=== PATIENT | male | born 1950 | race African-American/Black ===

== ENCOUNTER 2019-12-17 11:45 | Inpatient (IN) | payer OTHER ==
[~2019-12-17] VITALS: Ht 172.7 cm; Wt 75.7 kg
[2019-12-17 12:58] LABS: BASOPHILS % 0.7 % (0.0-2.0); EOSINOPHILS % 13.3 % (0.0-5.0); HEMATOCRIT. 45.9 % (36.0-48.0); HEMOGLOBIN. 15.7 g/dL (12.0-16.0); LYMPHOCYTES % 24.4 % (20.0-50.0); MEAN CORPUSCULAR HEMOGLOBIN 33.4 pg (28.0-32.0); MEAN CORPUSCULAR VOLUME 97.8 fL (81.0-99.0); MEAN PLATELET VOLUME 7.9 fl (7.4-10.4); NEUTROPHILS % 52.6 % (40.0-76.0); PLATELET 183 x1000/uL (130-400); RED CELL DISTRIBUTION WIDTH 13.8 % (11.6-14.6)
[2019-12-17 13:04] LABS: CLARITY URINE CLEAR (CLEAR); COLOR URINE DK YELLOW (YELLOW); KETONES URINE 1+ (NEGATIVE); LEUKOCYTE ESTERASE URINE NEGATIVE (NEGATIVE); NITRITE URINE NEGATIVE (NEGATIVE); OCCULT BLOOD URINE NEGATIVE (NEGATIVE); PH URINE 5.5 (4.5-8.0); PROTEIN URINE TRACE (NEGATIVE); UROBILINOGEN URINE 0.2 E.U./dL (0.2-1.0)
[2019-12-17 13:09] LABS: CHLORIDE 108 mEq/L (98-107)
[2019-12-17 13:13] LABS: INR 1.1; PROTHROMBIN TIME 11.4 sec (9.6-11.0)
[2019-12-17] MEDS ORDERED: FUROSEMIDE 20MG/2ML VIAL IVP ONE (13:15)
[2019-12-17] MEDS ORDERED: CLONIDINE 0.1MG TABLET PO PRN (16:00)
[2019-12-17] MEDS ORDERED: HYDROCODONE/ACETAMINOPHEN 5/325MG TABLET PO PRN (16:00)
[2019-12-17] MEDS ORDERED: DOCUSATE SODIUM 100MG CAPSULE PO PRN (16:00)
[2019-12-17] MEDS ORDERED: MORPHINE SULFATE 2 MG/ML CPJ (NOT FOR IM USE) IV PRN (16:00)
[2019-12-17] MEDS ORDERED: IPRATROPIUM/ALBUTEROL 0.5-3(2.5)MG/3ML NEB NEB PRN (16:00)
[2019-12-17] MEDS ORDERED: DIPHENHYDRAMINE 50MG/ML VIAL IV PRN (16:00)
[2019-12-17] MEDS ORDERED: LORAZEPAM 0.5MG TABLET PO PRN (16:00)
[2019-12-17] MEDS ORDERED: GUAIFENESIN 200MG/10ML SUGAR FREE UDC PO PRN (16:00)
[2019-12-17] MEDS ORDERED: HYDRALAZINE 20MG/ML VIAL IV PRN (16:00)
[2019-12-17] MEDS ORDERED: MAGNESIUM/ALUMINUM HYDROXIDE/SIMETHICONE 30ML UDC PO PRN (16:00)
[2019-12-17] MEDS ORDERED: ACETAMINOPHEN 650MG SUPP PR PRN (16:00)
[2019-12-17] MEDS ORDERED: ACETAMINOPHEN 325MG TABLET PO PRN ×2 (16:00→17:00)
[2019-12-17] MEDS ORDERED: ONDANSETRON HCL 4MG/2ML INJ IV PRN (16:00)
[2019-12-17] MEDS ORDERED: NA PHOS,M-B/NA PHOS,DI-BA ENEMA 118ML PR PRN (16:00)
[2019-12-17 17:36] LABS: BG BASE EXCESS -6.5 mmol/L (-2.0-2.0); BG CARBOXYHEMOGLOBIN 0.9 % (0.5-1.5); BG DEOXYHEMOGLOBIN 4.5 % (0.0-5.0); BG FRACTION INSPIRED OXYGEN 21; BG HCO3 ACT 15.5 mmol/L (22.0-26.0); BG METHEMOGLOBIN 0.3 % (0.0-1.5); BG OXYGEN SATURATION 95.4 % (92.0-98.5); BG OXYHEMOGLOBIN 94.3 % (94.0-97.0); BG PCO2 23.6 mmHg (35.0-45.0); BG PH 7.434 (7.350-7.450); BG SAMPLE SITE RIGHT BRACHIAL; BG TOTAL HEMOGLOBIN 15.9 g/dL (12.0-18.0); BG VENT MODE ROOM AIR
[2019-12-17 17:44] LABS: INR 1.1
[2019-12-17 17:48] VITALS: BP 103/73
[2019-12-17 18:00] VITALS: BP 103/73
[2019-12-17] MEDS ORDERED: IOHEXOL-300 100 ML BOTTLE ONE (19:06)
[2019-12-17 20:00] VITALS: BP 113/76
[2019-12-17] MEDS ORDERED: BISACODYL 10MG SUPP PR PRN (21:00)
[2019-12-17] MEDS ORDERED: DOCUSATE SODIUM 100MG CAPSULE PO SCH (21:00)
[2019-12-17] MEDS ORDERED: FAMOTIDINE 20MG TABLET PO SCH (21:00)
[2019-12-17] MEDS ORDERED: CHLORHEXIDINE GLUCONATE 4% EXTERNAL USE TOP SCH (21:00)
[2019-12-17] MEDS ORDERED: ASCORBIC ACID 500 MG TABLET PO SCH (21:00)
[2019-12-17] MEDS: ALLOPURINOL 300 MG TABLET PO SCH (21:10)
[2019-12-17 22:13] VITALS: BP 113/76
[2019-12-17] MEDS ORDERED: FUROSEMIDE 40MG/4ML VIAL IVP SCH (22:30)
[2019-12-17 22:52] LABS: *AMPHETAMINES SCREEN URINE NEGATIVE (NEGATIVE); *BARBITURATES SCREEN URINE NEGATIVE (NEGATIVE); *BENZODIAZEPINES SCREEN URINE NEGATIVE (NEGATIVE); *COCAINE SCREEN URINE NEGATIVE (NEGATIVE); CANNABINOID URINE SCREEN NEGATIVE (NEGATIVE); METHADONE URINE SCREEN NEGATIVE (NEGATIVE); OPIATES URINE SCREEN NEGATIVE (NEGATIVE); PHENCYCLIDINE URINE SCREEN NEGATIVE (NEGATIVE)
[2019-12-17 23:55] LABS: CREATINE KINASE 212 IU/L (39-308)
[2019-12-17 23:56] LABS: CREATINE KINASE MB FRACTION 4.5 ng/mL (0.5-3.6)
[2019-12-18] VITALS (51 sets, daily range): BP systolic 46–199; BP diastolic 40–186
[2019-12-18] MEDS ORDERED: MAGNESIUM 2 G PREMIX 50 ML IV SCH
[2019-12-18] MEDS ORDERED: AMLO5TAB88 PO (00:49)
[2019-12-18] MEDS ORDERED: AZIL40TA PO (00:49)
[2019-12-18] MEDS ORDERED: HYDR10TA34 PO (00:49)
[2019-12-18] MEDS ORDERED: EPINEPHRINE 4 MG in DEXT 5% WATER 246 ML IV SCH (06:00)
[2019-12-18] MEDS ORDERED: NOREPINEPHRINE 4 MG in DEXT 5% WATER 246 ML IV SCH (06:00)
[2019-12-18] MEDS: ALLOPURINOL 300 MG TABLET PO SCH (06:19)
[2019-12-18 06:31] LABS: HEMATOCRIT. 43.3 % (42.0-52.0); HEMOGLOBIN. 14.8 g/dL (14.0-18.0); MEAN CORPUSCULAR HEMOGLOBIN 33.3 pg (28.0-32.0); MEAN CORPUSCULAR VOLUME 97.6 fL (80.0-94.0); MEAN PLATELET VOLUME 8.1 fl (7.4-10.4); PLATELET 180 x1000/uL (130-400); RED BLOOD CELL COUNT 4.44 mill/uL (4.7-6.1); RED CELL DISTRIBUTION WIDTH 13.6 % (11.6-14.6)
[2019-12-18 06:37] LABS: CHLORIDE 107 mEq/L (98-107)
[2019-12-18 06:45] LABS: HDL CHOLESTEROL 65 mg/dL (40-59); LDL CHOLESTEROL 119 mg/dL (5-100)
[2019-12-18 06:46] LABS: CREATINE KINASE 262 IU/L (39-308)
[2019-12-18 06:47] LABS: CREATINE KINASE MB FRACTION 4.7 ng/mL (0.5-3.6); T4 FREE 1.45 ng/dL (0.76-1.46)
[2019-12-18] MEDS ORDERED: SKIN ADHESIVE 0.7 GM EA TOP ONE ×3 (08:00→09:25)
[2019-12-18] MEDS ORDERED: SODIUM CHLORIDE 0.9% IRRIG SOL 1,000 ML IR ONE (08:01)
[2019-12-18] MEDS ORDERED: NORMAL SALINE 0.9% 10 ML SYR ONE (08:01)
[2019-12-18] MEDS ORDERED: SODIUM CHLORIDE 0.9% 1,000 ML ONE (08:01)
[2019-12-18] MEDS ORDERED: BUPIVACAINE HCL 0.5% (5MG/ML) 50ML ONE (08:01)
[2019-12-18] MEDS ORDERED: BACITRACIN 50,000 UNITS/VIAL ONE (08:01)
[2019-12-18] MEDS: CHLORHEXIDINE GLUCONATE 4% EXTERNAL USE TOP SCH ×2 (09:11→11:00)
[2019-12-18] MEDS ORDERED: SUCCINYLCHOLINE CHLORIDE 200MG/10ML IV ONE (09:49)
[2019-12-18] MEDS ORDERED: LIDOCAINE HCL/PF 2% 20MG/ML 5 ML/VIAL ONE (09:51)
[2019-12-18] MEDS ORDERED: ETOMIDATE 2MG/ML 10ML VIAL IV ONE (10:42)
[2019-12-18] MEDS ORDERED: KETOROLAC 30MG/ML VIAL ONE (10:42)
[2019-12-18] MEDS ORDERED: DEXAMETHASONE 4MG/ML 1ML VIAL ONE (10:42)
[2019-12-18] MEDS ORDERED: ONDANSETRON HCL 4MG/2ML INJ ONE (10:42)
[2019-12-18] MEDS ORDERED: METOCLOPRAMIDE HCL 10MG/2ML VIAL ONE (10:42)
[2019-12-18] MEDS ORDERED: LIDOCAINE HCL/PF 1% 10 MG/ML 5ML VIAL ONE (10:43)
[2019-12-18] MEDS ORDERED: EPHEDRINE SULFATE 50MG/ML VIAL ONE (10:43)
[2019-12-18] MEDS ORDERED: SODIUM CHLORIDE 0.9% 500 ML IV PRN (10:43)
[2019-12-18] MEDS ORDERED: MORPHINE SULFATE 2 MG/ML CPJ (NOT FOR IM USE) IV PRN (10:45)
[2019-12-18] MEDS ORDERED: MAGNESIUM SULFATE 3 GM in DEXT 5% WATER 100 ML IV PRN (10:45)
[2019-12-18] MEDS ORDERED: ALBUMIN HUMAN 12.5G/250ML (5%) IV PRN (10:45)
[2019-12-18] MEDS ORDERED: MAGNESIUM 1 G PREMIX 100 ML IV PRN (10:45)
[2019-12-18] MEDS ORDERED: CALCIUM CHLORIDE 3,000 MG in DEXT 5% WATER 250 ML IV PRN (10:45)
[2019-12-18] MEDS ORDERED: ACETAMINOPHEN 325MG TABLET PO PRN (10:45)
[2019-12-18] MEDS ORDERED: ALBUMIN HUMAN 25GM/100ML (25%) IV PRN (10:45)
[2019-12-18] MEDS ORDERED: MAGNESIUM 2 G PREMIX 50 ML IV PRN (10:45)
[2019-12-18] MEDS ORDERED: ONDANSETRON HCL 4MG/2ML INJ IV PRN (10:45)
[2019-12-18] MEDS ORDERED: FENTANYL CITRATE/PF 50MCG/ML 2ML VIAL ONE (10:50)
[2019-12-18] MEDS ORDERED: FUROSEMIDE 40MG/4ML VIAL IVP NR (11:15)
[2019-12-18 11:18] LABS: BG BASE EXCESS -8.9 mmol/L (-2.0-2.0); BG CARBOXYHEMOGLOBIN 0.3 % (0.5-1.5); BG HCO3 ACT 17.2 mmol/L (22.0-26.0); BG METHEMOGLOBIN 0.3 % (0.0-1.5); BG OXYHEMOGLOBIN 97.4 % (94.0-97.0); BG PCO2 38.1 mmHg (35.0-45.0); BG PH 7.273 (7.350-7.450); BG PO2 125.8 mmHg (75.0-100.0); BG SAMPLE SITE A-LINE; BG TOTAL HEMOGLOBIN 12.8 g/dL (12.0-18.0); BG VENT MODE MASK - SIMPLE
[2019-12-18] MEDS: FAMOTIDINE 20MG/2ML VIAL IV SCH (11:33)
[2019-12-18] MEDS: KETOROLAC 15MG/ML VIAL IV SCH ×3 (11:34→22:33)
[2019-12-18 12:06] LABS: BASOPHILS % 0.4 % (0.0-2.0); EOSINOPHILS % 3.8 % (0.0-5.0); HEMATOCRIT. 38.5 % (42.0-52.0); HEMOGLOBIN. 12.9 g/dL (14.0-18.0); LYMPHOCYTES % 11.6 % (20.0-50.0); MEAN CORPUSCULAR HEMOGLOBIN 32.6 pg (28.0-32.0); MEAN CORPUSCULAR VOLUME 97.6 fL (80.0-94.0); MEAN PLATELET VOLUME 7.8 fl (7.4-10.4); MONOCYTES % 6.3 % (2.0-8.0); NEUTROPHILS % 77.9 % (40.0-76.0); PLATELET 168 x1000/uL (130-400); RED BLOOD CELL COUNT 3.95 mill/uL (4.7-6.1); RED CELL DISTRIBUTION WIDTH 13.6 % (11.6-14.6)
[2019-12-18 12:10] LABS: CHLORIDE 109 mEq/L (98-107)
[2019-12-18 12:49] LABS: PLATELET ESTIMATE NORMAL
[2019-12-18] MEDS: DOCUSATE SODIUM 100MG CAPSULE PO SCH (16:07)
[2019-12-18] MEDS: BACITRACIN 15GM TUBE TOP SCH (16:07)
[2019-12-18 19:55] LABS: BASOPHILS % 0.1 % (0.0-2.0); HEMOGLOBIN. 13.9 g/dL (14.0-18.0); LYMPHOCYTES % 7.9 % (20.0-50.0); MEAN CORPUSCULAR VOLUME 97.4 fL (80.0-94.0); MEAN PLATELET VOLUME 7.9 fl (7.4-10.4); PLATELET 174 x1000/uL (130-400); RED CELL DISTRIBUTION WIDTH 13.3 % (11.6-14.6)
[2019-12-18 20:11] LABS: CHLORIDE 107 mEq/L (98-107)
[2019-12-18] MEDS: FUROSEMIDE 40MG TABLET PO SCH (22:31)
[2019-12-19] VITALS (30 sets, daily range): BP systolic 61–134; BP diastolic 43–71
[2019-12-19] MEDS ORDERED: CALCIUM CHLORIDE 3,000 MG in DEXT 5% WATER 250 ML IV PRN (02:00)
[2019-12-19] MEDS ORDERED: MAGNESIUM SULFATE 3 GM in DEXT 5% WATER 100 ML IV PRN (02:00)
[2019-12-19 06:41] LABS: BASOPHILS % 0.6 % (0.0-2.0); HEMATOCRIT. 38.8 % (42.0-52.0); LYMPHOCYTES % 13.5 % (20.0-50.0); MEAN CORPUSCULAR HEMOGLOBIN 32.5 pg (28.0-32.0); MEAN CORPUSCULAR VOLUME 97.3 fL (80.0-94.0); MEAN PLATELET VOLUME 8.1 fl (7.4-10.4); MONOCYTES % 7.7 % (2.0-8.0); NEUTROPHILS % 77.2 % (40.0-76.0); PLATELET 171 x1000/uL (130-400); RED BLOOD CELL COUNT 3.99 mill/uL (4.7-6.1); RED CELL DISTRIBUTION WIDTH 13.3 % (11.6-14.6)
[2019-12-19 06:50] LABS: CHLORIDE 107 mEq/L (98-107)
[2019-12-19] MEDS: DOCUSATE SODIUM 100MG CAPSULE PO SCH ×2 (08:25→17:07)
[2019-12-19] MEDS: BACITRACIN 15GM TUBE TOP SCH ×2 (08:26→17:00)
[2019-12-19] MEDS: FAMOTIDINE 20MG/2ML VIAL IV SCH (08:26)
[2019-12-19] MEDS: FUROSEMIDE 40MG TABLET PO SCH ×2 (08:26→21:00)
[2019-12-19] MEDS ORDERED: AMIODARONE HCL 150 MG in DEXT 5% WATER 100 ML IV NR ×2 (11:00→20:30)
[2019-12-19] MEDS ORDERED: AMIODARONE HCL 900 MG in DEXT 5% WATER 482 ML IV SCH (11:00)
[2019-12-19] MEDS ORDERED: MAGNESIUM 2 G PREMIX 50 ML IV NR (13:00)
[2019-12-19] MEDS: OXYCODONE HCL/ACETAMINOPHEN 5/325MG TABLET PO PRN (16:51)
[2019-12-19] MEDS ORDERED: IBUPROFEN 400MG TABLET PO PRN (17:30)
[2019-12-19] MEDS ORDERED: AMIODARONE HCL 150 MG in DEXT 5% WATER 100 ML IV SCH (18:00)
[2019-12-19] MEDS: AMIODARONE HCL 200 MG TABLET PO SCH (21:00)
[2019-12-20] VITALS (12 sets, daily range): BP systolic 79–134; BP diastolic 56–73
[2019-12-20] MEDS: OXYCODONE HCL/ACETAMINOPHEN 5/325MG TABLET PO PRN (00:21)
[2019-12-20] MEDS ORDERED: THROAT LOZENGES-BENZOCAINE/MENTH/CETYLPYRD CL LOZENGES MM PRN (02:30)
[2019-12-20 05:48] LABS: CHLORIDE 104 mEq/L (98-107)
[2019-12-20 06:41] LABS: HEMATOCRIT. 40.8 % (42.0-52.0); MEAN CORPUSCULAR HEMOGLOBIN 33.3 pg (28.0-32.0); MEAN CORPUSCULAR VOLUME 96.7 fL (80.0-94.0); MEAN PLATELET VOLUME 8.1 fl (7.4-10.4); PLATELET 167 x1000/uL (130-400); RED BLOOD CELL COUNT 4.22 mill/uL (4.7-6.1); RED CELL DISTRIBUTION WIDTH 13.4 % (11.6-14.6)
[2019-12-20] MEDS: AMIODARONE HCL 200 MG TABLET PO SCH ×2 (08:48→20:38)
[2019-12-20] MEDS: FAMOTIDINE 20MG/2ML VIAL IV SCH (08:48)
[2019-12-20] MEDS: FUROSEMIDE 40MG TABLET PO SCH ×2 (08:48→20:38)
[2019-12-20] MEDS: DOCUSATE SODIUM 100MG CAPSULE PO SCH ×2 (08:48→16:02)
[2019-12-20] MEDS: BACITRACIN 15GM TUBE TOP SCH ×2 (09:00→15:35)
[2019-12-20 11:54] LABS: PLATELET ESTIMATE NORMAL
[2019-12-20] MEDS ORDERED: MAGNESIUM 4 G PREMIX 100 ML IV ONE (12:30)
[2019-12-20] MEDS ORDERED: HYDR-4001 MT (16:43)
[2019-12-21] VITALS (9 sets, daily range): BP systolic 95–114; BP diastolic 49–74
[2019-12-21 05:07] LABS: ANTI-NUCLEAR ANTIBODIES DIRECT Negative (Negative)
[2019-12-21 06:42] LABS: HEMATOCRIT. 43.5 % (42.0-52.0); HEMOGLOBIN. 14.6 g/dL (14.0-18.0); MEAN CORPUSCULAR HEMOGLOBIN 32.9 pg (28.0-32.0); MEAN CORPUSCULAR VOLUME 98.1 fL (80.0-94.0); MEAN PLATELET VOLUME 7.8 fl (7.4-10.4); PLATELET 180 x1000/uL (130-400); RED BLOOD CELL COUNT 4.44 mill/uL (4.7-6.1); RED CELL DISTRIBUTION WIDTH 13.2 % (11.6-14.6)
[2019-12-21 06:53] LABS: CHLORIDE 102 mEq/L (98-107)
[2019-12-21] MEDS: FAMOTIDINE 20MG/2ML VIAL IV SCH (08:23)
[2019-12-21] MEDS: AMIODARONE HCL 200 MG TABLET PO SCH (08:23)
[2019-12-21] MEDS: DOCUSATE SODIUM 100MG CAPSULE PO SCH (08:23)
[2019-12-21] MEDS: FUROSEMIDE 40MG TABLET PO SCH (08:23)
[2019-12-21] MEDS ORDERED: MAGNESIUM 4 G PREMIX 100 ML IV SCH (09:00)
[2019-12-21] MEDS: BACITRACIN 15GM TUBE TOP SCH (09:00)
[2019-12-21 09:26] LABS: PLATELET ESTIMATE NORMAL
[2019-12-21] MEDS ORDERED: POTASSIUM CHLORIDE 20MEQ TABLET SR PO NR (11:30)
[2019-12-21] MEDS ORDERED: AMI2 PO (12:22)
[2019-12-21] MEDS ORDERED: FURO-151 MT (12:22)
[2019-12-21 16:08] LABS: HEPATITIS B SURFACE ANTIGEN NEGATIVE
[2019-12-21 16:38] LABS: HEPATITIS A AB IGM NEGATIVE (NEGATIVE)
[2019-12-23 10:08] LABS: HIV SCREEN 4G Non Reactive (Non Reactive)
== END 2019-12-21 15:22 | disposition home health service (06) | DRG 270 ==
LOC: ER 11:45 → EDSEX 11:45 → 3WST 14:31 → EDBEDREQTM 14:34 → EDBEDREQ 14:34 → EDBEDREQSVC 14:34 → SUPCPDRO 15:11 → ENRESERV 15:38 → SUPCPDRO 15:52 → CVICU 12-18 09:31 → 3WST 12-19 12:08
PROVIDERS: ADMIT Internal Medicine; ATTEND Internal Medicine
PROC: 02B Heart and Great Vessels, Excision (ICD-10-PCS; principal; 2019-12-18)
PROC: B24CZZ4 Ultrasonography of Pericardium, Transesophageal (ICD-10-PCS; 2019-12-18)
PROC: 0W9D3ZX Drainage of Pericardial Cavity, Percutaneous Approach, Diagnostic (ICD-10-PCS; 2019-12-18)
PROC: 0W9B4ZZ Drainage of Left Pleural Cavity, Percutaneous Endoscopic Approach (ICD-10-PCS; 2019-12-18)
DX: I31.3 Pericardial effusion (noninflammatory) (principal); J96.01 Acute respiratory failure with hypoxia; J94.8 Other specified pleural conditions; E44.1 Mild protein-calorie malnutrition; J93.9 Pneumothorax, unspecified; I48.92 Unspecified atrial flutter; I31.4 Cardiac tamponade; R06.03 Acute respiratory distress; E88.09 Other disorders of plasma-protein metabolism, not elsewhere classified; D72.1 Eosinophilia; E87.8 Other disorders of electrolyte and fluid balance, not elsewhere classified; I48.91 Unspecified atrial fibrillation; I44.0 Atrioventricular block, first degree; I10 Essential (primary) hypertension; R73.9 Hyperglycemia, unspecified; Z68.25 Body mass index [BMI] 25.0-25.9, adult; Z79.899 Other long term (current) drug therapy
CPT/HCPCS: 36415; 36600; 71045; 71260; 74177; 80048; 80053; 80061; 80305; 81003; 82375; 82550; 82553; 82805; 83735; 83880; 84439; 84443; 84484; 85025; 85651; 86038; 86141; 86431; 86705; 86709; 86803; 86850; 86900; 87070; 87075; 87116; 87340; 87389; 88108; 88305; 88312; 93005; 93306; 93970; 99291; J0282; J0330; J1100; J1885; J1940; J2405; J2765; J3010; J3475; J3490; J7030; J7060; P9041; P9047; Q9967